=== PATIENT | male | born 1965 | race African-American/Black ===

== ENCOUNTER 2020-05-18 11:44 | Emergency (ER) | payer OTHER ==
[2020-05-18 11:50] VITALS: BP 120/84; PULSE 62; TEMP 98; BMI 22.8
--- NOTE | 2020-05-18 12:23 | PDOC ---
History of Present Illness - General Chief Complaint: Headache Stated Complaint: HEADACHE (4 DAYS) Time Seen by Provider: 05/18/20 12:05 History Source: Patient Past History - Medical History Allergies/Adverse Reactions: Allergies Allergy/AdvReac Type Severity Reaction Status Date / Time No Known Allergies Allergy Verified 05/18/20 11:50 Home Medications: Ambulatory Orders NK [No Known Home Medication] 09/07/14 COPD: No Other medical history: LUPUS - Psycho-Social/Smoking History Smoking History: Current every day smoker Information on smoking cessation initiated: No - Substance Abuse Hx (Audit-C & DAST Scrn) How often the patient has a drink containing alcohol: 2-4 times / month Score: In Men: 4 or > Positive; In Women: 3 or > Positive: 2 Screen Result (Pos requires Nsg. Audit-10AR): Negative *Physical Exam - Vital Signs Last Vital Signs Temp Pulse Resp BP Pulse Ox 98 F 62 18 120/84 98 05/18/20 11:47 05/18/20 11:47 05/18/20 11:47 05/18/20 11:47 05/18/20 11:47 ED Treatment Course - RADIOLOGY Radiology Studies Ordered: Category Date Time Status HEAD CT WITHOUT CONTRAST [CT] Stat CT Scan 05/18/20 12:22 Ordered Medical Decision Making - Medical Decision Making 05/18/20 12:22 55 yo M, here w/ GATICA x 4 days. Pain diffuse, unable to describe, 10/10 at its worse and improves w/ aleve. No dizziness, blurry vision, n/v/f/c or unexplained weight loss. Pt states he has had GATICA since he was "a little boy" but states he has not had a GATICA in many years. No neuroimaging in past see exam New onset GATICA Neuro intact No infectious sxs -CTH -pain presently controlled 05/18/20 14:05 CT scan unremarkable. Pt to continue aleve and follow up with his PMD Discharge - Discharge Information Problems reviewed: Yes Clinical Impression/Diagnosis: Headache Qualifiers: Headache type: unspecified Headache chronicity pattern: acute headache Intractability: not intractable Qualified Code(s): R51 - Headache Condition: Good Disposition: HOME - Follow up/Referral Referrals: Anna Mark [Primary Care Provider] - - Patient Discharge Instructions Patient Printed Discharge Instructions: DI for Headache Additional Instructions: Your cat scan was normal Continue aleve for pain Follow with your PMD - Post Discharge Activity
== END 2020-05-18 14:17 | disposition home or self-care (01) ==
LOC: JERFT 11:44
DX: R51 Headache (principal)
CPT/HCPCS: 70450-TC; 99284-25

== ENCOUNTER 2021-09-19 11:08 | Emergency (ER) | payer OTHER ==
[2021-09-19 12:03] VITALS: BP 126/68; PULSE 62; TEMP 98.6; BMI 20.7
[2021-09-19] MEDS ORDERED: IBUPROFEN 600 MG TABLET (FP) PO ONE (12:08)
== END 2021-09-19 13:40 | disposition home or self-care (01) ==
LOC: JER 11:08
DX: U07.1 COVID-19 (principal); Z11.52 Encounter for screening for COVID-19
CPT/HCPCS: 71046-TC-FY; 87804; 99284-25; C9803; U0003; U0005

== ENCOUNTER 2021-09-19 18:09 | Emergency (ER) | payer OTHER ==
[2021-09-19] MEDS ORDERED: CASIRIVIMAB/IMDEVIMAB 10 ML in SODIUM CHLORIDE 100 ML IVPB ONE (18:24)
[2021-09-19 18:29] VITALS: BMI 21.4
[2021-09-19 21:19] VITALS: BP 114/65; PULSE 68; TEMP 99.6
== END 2021-09-19 20:59 | disposition home or self-care (01) ==
LOC: JCOVINFU 18:09
DX: U07.1 COVID-19 (principal)
CPT/HCPCS: 99284-25; Q0240

== ENCOUNTER 2022-03-20 21:10 | Inpatient (IN) | payer OTHER ==
[2022-03-20] MEDS ORDERED: ACETAMINOPHEN 325 MG TABLET (FP) PO ONE (21:54)
[2022-03-20] MEDS ORDERED: ACETAMINOPHEN 1000 MG/100 ML BAG IVPB ONE (22:55)
[2022-03-20] MEDS ORDERED: ACETAMINOPHEN INJECTION 100 ML IVPB ONE (22:58)
[2022-03-21 00:22] LABS: BASO % 0.2 % (0-2.0); EOS % 1.5 % (0-4.5); HEMATOCRIT 42.3 % (35.4-49); HEMOGLOBIN 14.4 GM/dL (11.7-16.9); LYMPH % 15.2 % (8-40); MEAN CELL VOLUME 94.3 fl (80-96); MEAN PLT VOLUME 7.5 fl (7.5-11.1); MONO % 12.4 % (3.8-10.2); NEUT % 70.7 % (42.8-82.8); PLATELET COUNT 210 10^3/uL (134-434); RBC 4.49 M/mm3 (4.00-5.60); RDW 14.4 % (11.9-15.9); WHITE BLOOD COUNT 5.9 K/mm3 (4.0-10.0)
[2022-03-21 00:23] LABS: PH,URINE 6.5 (5.0-8.0); URINE APPEARANCE CLEAR; URINE BILIRUBIN NEGATIVE (NEGATIVE); URINE COLOR YELLOW; URINE GLUCOSE (UA) NEGATIVE (NEGATIVE); URINE KETONE NEGATIVE (NEGATIVE); URINE LEUK ESTERASE NEGATIVE (NEGATIVE); URINE NITRITE NEGATIVE (NEGATIVE); URINE PROTEIN NEGATIVE (NEGATIVE); URINE UROBILINOGEN 0.2 mg/dL (0.2-1.0)
[2022-03-21 00:29] LABS: ALBUMIN 3.5 g/dl (3.4-5.0); BLOOD UREA NITROGEN 9.6 mg/dL (7-18); CALCIUM 8.7 mg/dL (8.5-10.1)
[2022-03-21 00:33] LABS: BILIRUBIN,TOTAL 0.5 mg/dL (0.2-1); CREATININE 0.9 mg/dL (0.55-1.3); TOT PROT 7.2 g/dl (6.4-8.2)
[2022-03-21] MEDS ORDERED: CEFTRIAXONE 1 GM in DEXTROSE 5%-WATER - 50 ML IVPB ONE (02:55)
[2022-03-21] MEDS ORDERED: CEFTRIAXONE 1 GM/50 ML BAG ONE (02:58)
[2022-03-21] MEDS: SODIUM CHLORIDE 1,000 ML IV SCH (06:40)
[2022-03-21 07:40] LABS: CALCIUM 8.8 mg/dL (8.5-10.1); HEMATOCRIT 43.1 % (35.4-49); HEMOGLOBIN 14.5 GM/dL (11.7-16.9); MCH 31.7 pg (25.7-33.7); MCHC 33.7 g/dl (32.0-35.9); MEAN CELL VOLUME 94.2 fl (80-96); MEAN PLT VOLUME 7.4 fl (7.5-11.1); PLATELET COUNT 211 10^3/uL (134-434); RBC 4.58 M/mm3 (4.00-5.60); RDW 13.8 % (11.9-15.9); WHITE BLOOD COUNT 5.7 K/mm3 (4.0-10.0)
[2022-03-21 07:42] LABS: BLOOD UREA NITROGEN 8.9 mg/dL (7-18); MAGNESIUM 2.3 mg/dL (1.8-2.4)
[2022-03-21 07:44] LABS: CREATININE 0.8 mg/dL (0.55-1.3)
[2022-03-21 08:59] VITALS: BMI 19.8
[2022-03-21] MEDS ORDERED: DEXTROSE 5%-WATER - 50 ML IVPB ONE (09:21)
[2022-03-21] MEDS ORDERED: cefTRIAXone SODIUM 1 GM VIAL ONE (09:21)
[2022-03-21] MEDS: CEFTRIAXONE 1 GM in DEXTROSE 5%-WATER - 50 ML IVPB SCH (10:17)
[2022-03-21] MEDS ORDERED: ACETAMINOPHEN 1000 MG/100 ML BAG IVPB ONE (13:52)
[2022-03-21] MEDS ORDERED: predniSONE 10 MG TABLET (UD) PO ONE (13:52)
[2022-03-22] MEDS: ACETAMINOPHEN 500 MG TABLET (FP) PO PRN ×3 (03:43→22:37)
[2022-03-22] MEDS: SODIUM CHLORIDE 1,000 ML IV SCH (03:43)
[2022-03-22] MEDS ORDERED: DEXTROSE 5%-WATER - 50 ML IVPB ONE (09:27)
[2022-03-22] MEDS ORDERED: cefTRIAXone SODIUM 1 GM VIAL ONE (09:27)
[2022-03-22] MEDS: CEFTRIAXONE 1 GM in DEXTROSE 5%-WATER - 50 ML IVPB SCH (10:10)
[2022-03-22] MEDS: ENOXAPARIN NA (PORCINE) 40 MG/0.4 ML DISP.SYRIN SQ SCH (10:11)
[2022-03-22] MEDS: FOLIC ACID 1 MG TABLET (FP) PO SCH (10:53)
[2022-03-22] MEDS: predniSONE 10 MG TABLET (UD) PO SCH (11:12)
[2022-03-22 12:10] LABS: BASO % 0.3 % (0-2.0); EOS % 0.2 % (0-4.5); HEMATOCRIT 39.6 % (35.4-49); HEMOGLOBIN 13.7 GM/dL (11.7-16.9); LYMPH % 8.4 % (8-40); MCHC 34.5 g/dl (32.0-35.9); MEAN CELL VOLUME 92.7 fl (80-96); MONO % 7.5 % (3.8-10.2); NEUT % 83.6 % (42.8-82.8); PLATELET COUNT 209 10^3/uL (134-434); RBC 4.28 M/mm3 (4.00-5.60); RDW 13.8 % (11.9-15.9); WHITE BLOOD COUNT 8.3 K/mm3 (4.0-10.0)
[2022-03-22 12:29] LABS: CALCIUM 8.6 mg/dL (8.5-10.1)
[2022-03-22 12:30] LABS: BLOOD UREA NITROGEN 14.8 mg/dL (7-18)
[2022-03-22 12:33] LABS: CREATININE 0.9 mg/dL (0.55-1.3)
[2022-03-22] MEDS ORDERED: PIPERACILLIN/TAZOB 3.375 GM 3.375 GM in DEXTROSE 5%-WATER - 50 ML IVPB SCH (14:00)
[2022-03-23] MEDS: SODIUM CHLORIDE 1,000 ML IV SCH ×2 (05:30→22:15)
[2022-03-23] MEDS: ACETAMINOPHEN 500 MG TABLET (FP) PO PRN ×2 (06:07→12:13)
[2022-03-23 09:44] LABS: HEMATOCRIT 40.5 % (35.4-49); HEMOGLOBIN 13.7 GM/dL (11.7-16.9); MCH 31.6 pg (25.7-33.7); MCHC 33.8 g/dl (32.0-35.9); MEAN CELL VOLUME 93.4 fl (80-96); MEAN PLT VOLUME 7.5 fl (7.5-11.1); PLATELET COUNT 221 10^3/uL (134-434); RBC 4.34 M/mm3 (4.00-5.60); RDW 13.9 % (11.9-15.9)
[2022-03-23] MEDS: ENOXAPARIN NA (PORCINE) 40 MG/0.4 ML DISP.SYRIN SQ SCH (09:47)
[2022-03-23] MEDS: FOLIC ACID 1 MG TABLET (FP) PO SCH (09:47)
[2022-03-23] MEDS: predniSONE 10 MG TABLET (UD) PO SCH (09:47)
[2022-03-23 10:06] LABS: CALCIUM 8.5 mg/dL (8.5-10.1)
[2022-03-23 10:07] LABS: BLOOD UREA NITROGEN 15.6 mg/dL (7-18)
[2022-03-23 10:09] LABS: CREATININE 0.8 mg/dL (0.55-1.3)
[2022-03-23] MEDS ORDERED: DEXTROSE 5%-WATER - 50 ML IVPB ONE ×2 (12:11→16:26)
[2022-03-23] MEDS ORDERED: PIPERACILLIN/TAZOBACTAM 3.375 GM VIAL IVPB ONE ×3 (12:11→18:12)
[2022-03-23] MEDS: PIPERACILLIN/TAZOB 3.375 GM 3.375 GM in DEXTROSE 5%-WATER - 50 ML IVPB SCH ×2 (12:14→18:00)
[2022-03-23] MEDS ORDERED: morphine SULFATE 4 MG/ML VIAL IVPUSH ONE (12:45)
[2022-03-23] MEDS ORDERED: PIPERACILLIN/TAZOB 3.375 GM 3.375 GM in DEXTROSE 5%-WATER - 50 ML IVPB SCH (14:00)
[2022-03-23] MEDS ORDERED: INDOCYANINE GREEN 25 MG/10 ML VIAL IVPUSH ONE ×3 (17:25→18:20)
[2022-03-23] MEDS ORDERED: ONDANSETRON 4 MG/2 ML VIAL IVPUSH PRN ×2 (17:34→20:28)
[2022-03-23] MEDS ORDERED: PROPOFOL 20 ML ONE (17:37)
[2022-03-23] MEDS ORDERED: SUCCINYLCHOLINE CHLORIDE 200 MG/10 ML SYRINGE ONE (17:37)
[2022-03-23] MEDS ORDERED: MIDAZOLAM HCL 2 MG/2 ML SINGLE DOSE VIAL ONE (17:37)
[2022-03-23] MEDS ORDERED: FENTANYL CITRATE/PF 50 MCG/ML VIAL ONE ×9 (17:37→21:08)
[2022-03-23] MEDS ORDERED: ROCURONIUM BROMIDE 50 MG/5 ML SYRINGE ONE ×2 (17:37→19:22)
[2022-03-23] MEDS ORDERED: DEXAMETHASONE SOD PHOSPHATE 4 MG/1 ML VIAL ONE (17:41)
[2022-03-23] MEDS ORDERED: BUPIVACAINE HCL/PF 2.5 MG/ML - 30 ML VIAL IJ ONE (19:00)
[2022-03-23] MEDS ORDERED: BUPIVACAINE HCL/PF 0.25% (2.5MG/ML) 10 ML VIAL ONE (19:18)
[2022-03-23] MEDS ORDERED: NEOSTIGMINE METHYLSULFATE 0.5 MG/ML - 10 ML MDV ONE (19:54)
[2022-03-23] MEDS ORDERED: morphine CARPU-JECT 4 MG/1 ML DISP.SYRIN IVPUSH PRN (20:24)
[2022-03-23] MEDS ORDERED: IBUPROFEN 800 MG/8 ML IJ IVPB PRN (20:25)
[2022-03-24 01:24] LABS: HIV INTERPRETATION NEGATIVE (NEGATIVE)
[2022-03-24] MEDS ORDERED: DEXTROSE 5%-WATER - 50 ML IVPB ONE ×3 (01:35→18:11)
[2022-03-24] MEDS ORDERED: PIPERACILLIN/TAZOBACTAM 3.375 GM VIAL IVPB ONE ×3 (01:35→18:11)
[2022-03-24] MEDS: PIPERACILLIN/TAZOB 3.375 GM 3.375 GM in DEXTROSE 5%-WATER - 50 ML IVPB SCH ×3 (01:46→18:27)
[2022-03-24] MEDS: morphine SULFATE 4 MG/ML VIAL IVPUSH PRN ×2 (06:51→11:18)
[2022-03-24 09:16] LABS: HEMATOCRIT 38.6 % (35.4-49); MCH 31.2 pg (25.7-33.7); MCHC 33.6 g/dl (32.0-35.9); MEAN CELL VOLUME 92.9 fl (80-96); MEAN PLT VOLUME 7.1 fl (7.5-11.1); PLATELET COUNT 231 10^3/uL (134-434); RBC 4.15 M/mm3 (4.00-5.60); RDW 13.8 % (11.9-15.9); WHITE BLOOD COUNT 7.8 K/mm3 (4.0-10.0)
[2022-03-24] MEDS: FOLIC ACID 1 MG TABLET (FP) PO SCH (09:19)
[2022-03-24] MEDS: ENOXAPARIN NA (PORCINE) 40 MG/0.4 ML DISP.SYRIN SQ SCH (09:19)
[2022-03-24] MEDS: predniSONE 10 MG TABLET (UD) PO SCH (09:19)
[2022-03-24 10:00] LABS: CALCIUM 8.5 mg/dL (8.5-10.1)
[2022-03-24 10:01] LABS: BLOOD UREA NITROGEN 12.1 mg/dL (7-18)
[2022-03-24 10:04] LABS: CREATININE 0.8 mg/dL (0.55-1.3)
[2022-03-24] MEDS: ACETAMINOPHEN 500 MG TABLET (FP) PO PRN ×2 (15:00→21:01)
[2022-03-24] MEDS: SODIUM CHLORIDE 1,000 ML IV SCH ×2 (15:04→18:25)
[2022-03-25] MEDS ORDERED: PIPERACILLIN/TAZOBACTAM 3.375 GM VIAL IVPB ONE ×3 (01:28→17:40)
[2022-03-25] MEDS ORDERED: DEXTROSE 5%-WATER - 50 ML IVPB ONE ×3 (01:29→17:40)
[2022-03-25] MEDS: PIPERACILLIN/TAZOB 3.375 GM 3.375 GM in DEXTROSE 5%-WATER - 50 ML IVPB SCH ×3 (01:43→18:07)
[2022-03-25] MEDS: morphine SULFATE 4 MG/ML VIAL IVPUSH PRN (06:54)
[2022-03-25 09:44] LABS: HEMOGLOBIN 12.9 GM/dL (11.7-16.9); MCH 31.9 pg (25.7-33.7); MCHC 33.9 g/dl (32.0-35.9); MEAN CELL VOLUME 94.1 fl (80-96); MEAN PLT VOLUME 7.8 fl (7.5-11.1); PLATELET COUNT 244 10^3/uL (134-434); RBC 4.04 M/mm3 (4.00-5.60); RDW 13.7 % (11.9-15.9); WHITE BLOOD COUNT 7.2 K/mm3 (4.0-10.0)
[2022-03-25 09:51] LABS: CALCIUM 8.4 mg/dL (8.5-10.1)
[2022-03-25 09:52] LABS: BLOOD UREA NITROGEN 13.6 mg/dL (7-18)
[2022-03-25 09:55] LABS: CREATININE 0.7 mg/dL (0.55-1.3)
[2022-03-25] MEDS: predniSONE 10 MG TABLET (UD) PO SCH (10:58)
[2022-03-25] MEDS: ENOXAPARIN NA (PORCINE) 40 MG/0.4 ML DISP.SYRIN SQ SCH (10:58)
[2022-03-25] MEDS: FOLIC ACID 1 MG TABLET (FP) PO SCH (10:58)
[2022-03-25] MEDS: SODIUM CHLORIDE 1,000 ML IV SCH (17:34)
[2022-03-26] MEDS ORDERED: DEXTROSE 5%-WATER - 50 ML IVPB ONE ×2 (01:38→09:37)
[2022-03-26] MEDS ORDERED: PIPERACILLIN/TAZOBACTAM 3.375 GM VIAL IVPB ONE ×2 (01:38→09:37)
[2022-03-26] MEDS: PIPERACILLIN/TAZOB 3.375 GM 3.375 GM in DEXTROSE 5%-WATER - 50 ML IVPB SCH ×2 (02:14→09:45)
[2022-03-26] MEDS: morphine SULFATE 4 MG/ML VIAL IVPUSH PRN (02:15)
[2022-03-26] MEDS: ENOXAPARIN NA (PORCINE) 40 MG/0.4 ML DISP.SYRIN SQ SCH (09:44)
[2022-03-26] MEDS: predniSONE 10 MG TABLET (UD) PO SCH (09:44)
[2022-03-26] MEDS: FOLIC ACID 1 MG TABLET (FP) PO SCH (09:44)
[2022-03-26] MEDS: ACETAMINOPHEN 500 MG TABLET (FP) PO PRN (09:53)
[2022-03-26 10:36] LABS: HEMATOCRIT 37.8 % (35.4-49); HEMOGLOBIN 12.7 GM/dL (11.7-16.9); MCH 31.4 pg (25.7-33.7); MCHC 33.6 g/dl (32.0-35.9); MEAN CELL VOLUME 93.4 fl (80-96); MEAN PLT VOLUME 7.2 fl (7.5-11.1); PLATELET COUNT 276 10^3/uL (134-434); RBC 4.05 M/mm3 (4.00-5.60); RDW 13.7 % (11.9-15.9); WHITE BLOOD COUNT 6.4 K/mm3 (4.0-10.0)
[2022-03-26] MEDS: SODIUM CHLORIDE 1,000 ML IV SCH (11:33)
[2022-03-26 11:35] LABS: CALCIUM 8.3 mg/dL (8.5-10.1)
[2022-03-26 11:36] LABS: BLOOD UREA NITROGEN 13.4 mg/dL (7-18)
[2022-03-26 11:39] LABS: CREATININE 0.8 mg/dL (0.55-1.3)
[2022-03-26] MEDS ORDERED: oxyCODONE HCL 5 MG TABLET PO PRN (12:24)
[2022-03-26] MEDS ORDERED: IBUPROFEN 600 MG TABLET (FP) PO SCH (12:30)
[2022-03-26] MEDS: ACETAMINOPHEN 325 MG TABLET (FP) PO SCH ×3 (14:18→23:48)
[2022-03-26] MEDS ORDERED: IBUPROFEN 600 MG TABLET (FP) PO PRN (14:28)
[2022-03-26] MEDS: AMOX TR/POT CLAV 875MG/125MG TABLETS (FP) PO SCH (17:28)
[2022-03-27] MEDS: ACETAMINOPHEN 325 MG TABLET (FP) PO SCH ×3 (06:28→17:45)
[2022-03-27] MEDS: FOLIC ACID 1 MG TABLET (FP) PO SCH (09:35)
[2022-03-27] MEDS: ENOXAPARIN NA (PORCINE) 40 MG/0.4 ML DISP.SYRIN SQ SCH (09:35)
[2022-03-27] MEDS: AMOX TR/POT CLAV 875MG/125MG TABLETS (FP) PO SCH ×2 (09:35→16:52)
[2022-03-27] MEDS: predniSONE 10 MG TABLET (UD) PO SCH (09:36)
[2022-03-27 16:26] VITALS: BP 112/72; PULSE 58; TEMP 98.8
== END 2022-03-27 18:38 | disposition home health service (06) | DRG 221 ==
LOC: JER 21:10 → JERBED 03-21 03:23 → J8W 03-21 08:12
PROVIDERS: ADMIT Internal Medicine; ATTEND Internal Medicine
PROC: 0D1N4Z4 Bypass Sigmoid Colon to Cutaneous, Percutaneous Endoscopic Approach (ICD-10-PCS; principal; 2022-03-23 17:30)
PROC: 0DBNFZZ Excision of Sigmoid Colon, Via Natural or Artificial Opening With Percutaneous Endoscopic Assistance (ICD-10-PCS; 2022-03-23 17:30)
PROC: 0T788DZ Dilation of Bilateral Ureters with Intraluminal Device, Via Natural or Artificial Opening Endoscopic (ICD-10-PCS; 2022-03-25)
DX: K57.80 Diverticulitis of intestine, part unspecified, with perforation and abscess without bleeding (principal); D84.9 Immunodeficiency, unspecified; K65.9 Peritonitis, unspecified; J98.11 Atelectasis; L93.1 Subacute cutaneous lupus erythematosus; R50.9 Fever, unspecified; R10.32 Left lower quadrant pain
CPT/HCPCS: 36415; 71045-TC-FY; 74176-TC; 80048; 80053; 81003; 83735; 85025; 85027; 86140; 87040; 87086; 87389; 88307-TC; 93005; 93010; 94760; 99285-25; C9803-CS; U0003; U0005

== ENCOUNTER 2022-07-27 04:33 | Day surgery (SDC) | payer OTHER ==
[2022-07-22 12:20] VITALS: BMI 24.5
[2022-07-27 11:08] VITALS: TEMP 98
[2022-07-27 12:03] VITALS: BP 130/72; PULSE 56; RESP 18
== END 2022-07-27 11:45 | disposition home or self-care (01) ==
LOC: JASU-ENDO 04:33
PROVIDERS: ATTEND Internal Medicine Gastroenterology
PROC: 0DJD8ZZ Inspection of Lower Intestinal Tract, Via Natural or Artificial Opening Endoscopic (ICD-10-PCS; principal; 2022-07-27 10:00)
DX: Z12.11 Encounter for screening for malignant neoplasm of colon (principal); K57.31 Diverticulosis of large intestine without perforation or abscess with bleeding; K57.30 Diverticulosis of large intestine without perforation or abscess without bleeding; K64.8 Other hemorrhoids; Z93.3 Colostomy status

== ENCOUNTER 2022-08-07 13:27 | Emergency (ER) | payer OTHER ==
[2022-08-07 13:36] VITALS: BP 113/62; PULSE 67; RESP 16; TEMP 97.9; BMI 22.1
== END 2022-08-07 14:26 | disposition home or self-care (01) ==
LOC: JERFT 13:27
DX: K94.03 Colostomy malfunction (principal); Z76.0 Encounter for issue of repeat prescription
CPT/HCPCS: 99282-25

== ENCOUNTER 2022-08-30 17:30 | Inpatient (IN) | payer OTHER ==
[2022-09-07] MEDS ORDERED: HEPARIN NA (PORCINE) 5,000 UNITS/ML 1ML VIAL ONE (08:04)
[2022-09-07] MEDS ORDERED: PROPOFOL 20 ML ONE (08:05)
[2022-09-07] MEDS ORDERED: FENTANYL CITRATE/PF 50 MCG/ML VIAL ONE (08:05)
[2022-09-07] MEDS ORDERED: MIDAZOLAM HCL 2 MG/2 ML SINGLE DOSE VIAL ONE (08:05)
[2022-09-07] MEDS ORDERED: HEPARIN NA (PORCINE) 5,000 UNITS/ML 1ML VIAL SQ ONE (08:09)
[2022-09-07] MEDS ORDERED: DEXAMETHASONE SOD PHOSPHATE 4 MG/1 ML VIAL ONE (08:28)
[2022-09-07] MEDS ORDERED: cefOXitin SODIUM 1 GM VIAL (RESTRICTED TO ID) IVPB ONE (08:30)
[2022-09-07] MEDS ORDERED: ONDANSETRON 4 MG/2 ML VIAL ONE (08:31)
[2022-09-07] MEDS ORDERED: CEFOXITIN SODIUM 1 GM IVPB ONE (08:32)
[2022-09-07] MEDS ORDERED: ROCURONIUM BROMIDE 50 MG/5 ML SYRINGE ONE (08:49)
[2022-09-07] MEDS ORDERED: BUPIVACAINE HCL/PF 0.25% (2.5MG/ML) 10 ML VIAL IJ ONE (09:05)
[2022-09-07] MEDS ORDERED: SEVOFLURANE 250 ML BTL ONE (09:09)
[2022-09-07] MEDS ORDERED: INDOCYANINE GREEN 25 MG/10 ML VIAL IVPUSH ONE (09:09)
[2022-09-07] MEDS ORDERED: BUPIVACAINE HCL/PF 0.25% (2.5MG/ML) 10 ML VIAL ONE ×2 (09:09→09:11)
[2022-09-07] MEDS ORDERED: HYDROmorphone HCl 2 MG/ML VIAL ONE (10:22)
[2022-09-07] MEDS ORDERED: ACETAMINOPHEN INJECTION 100 ML IVPB ONE (10:25)
[2022-09-07] MEDS ORDERED: ONDANSETRON 4 MG/2 ML VIAL IVPUSH PRN ×2 (11:46→11:51)
[2022-09-07] MEDS ORDERED: DEXTROSE 5%-0.45% SALINE 1,000 ML IV SCH (12:00)
[2022-09-07 14:10] VITALS: BMI 23.1
[2022-09-07] MEDS: LACTATED RINGERS SOLUTION 1,000 ML IV SCH (14:11)
[2022-09-07] MEDS: SODIUM CHLORIDE 1,000 ML IV SCH (14:11)
[2022-09-07] MEDS: IBUPROFEN 800 MG/8 ML IJ IVPB SCH ×2 (14:27→22:15)
[2022-09-07] MEDS ORDERED: BISACODYL 5 MG TABLET.DR (FP) PO PRN (16:00)
[2022-09-07] MEDS: ACETAMINOPHEN 1000 MG/100 ML BAG IVPB SCH (17:20)
[2022-09-07] MEDS: ENOXAPARIN NA (PORCINE) 40 MG/0.4 ML DISP.SYRIN SQ SCH (21:15)
[2022-09-07] MEDS: MELATONIN 1 MG TABLET PO SCH (21:15)
[2022-09-07] MEDS ORDERED: oxyCODONE HCL 5 MG TABLET PO PRN (23:31)
[2022-09-08] MEDS: ACETAMINOPHEN 1000 MG/100 ML BAG IVPB SCH ×3 (00:53→11:35)
[2022-09-08] MEDS: SODIUM CHLORIDE 1,000 ML IV SCH ×2 (00:54→12:46)
[2022-09-08] MEDS: IBUPROFEN 800 MG/8 ML IJ IVPB SCH (06:46)
[2022-09-08] MEDS ORDERED: oxyCODONE HCL 5 MG TABLET PO PRN ×2 (08:31)
[2022-09-08] MEDS ORDERED: morphine SULFATE 4 MG/ML VIAL IVPUSH PRN (08:31)
[2022-09-08] MEDS: ENOXAPARIN NA (PORCINE) 40 MG/0.4 ML DISP.SYRIN SQ SCH (09:30)
[2022-09-08] MEDS: predniSONE 5 MG TABLET (UD) PO SCH (09:59)
[2022-09-08] MEDS ORDERED: HYDROXYCHLOROQUINE SO4 200 MG TABLET (FP) PO SCH (10:00)
[2022-09-08] MEDS: PANTOPRAZOLE SODIUM 40 MG VIAL IVPUSH SCH ×2 (10:47→22:08)
[2022-09-08 11:12] LABS: HEMATOCRIT 39.2 % (35.4-49); HEMOGLOBIN 13.1 GM/dL (11.7-16.9); MCHC 33.4 g/dl (32.0-35.9); MEAN CELL VOLUME 89.9 fl (80-96); MEAN PLT VOLUME 7.8 fl (7.5-11.1); PLATELET COUNT 191 10^3/uL (134-434); RBC 4.35 M/mm3 (4.00-5.60); RDW 12.9 % (11.9-15.9); WHITE BLOOD COUNT 5.8 K/mm3 (4.0-10.0)
[2022-09-08 11:44] LABS: CALCIUM 8.1 mg/dL (8.5-10.1)
[2022-09-08 11:45] LABS: BLOOD UREA NITROGEN 12.1 mg/dL (7-18)
[2022-09-08 11:49] LABS: CREATININE 0.9 mg/dL (0.55-1.3)
[2022-09-08] MEDS: LACTATED RINGERS SOLUTION 1,000 ML IV SCH (12:46)
[2022-09-08] MEDS ORDERED: IBUPROFEN 600 MG TABLET (FP) PO SCH (13:00)
[2022-09-08 15:42] LABS: BASO % 0.8 % (0-2.0); EOS % 0.1 % (0-4.5); HEMOGLOBIN 12.5 GM/dL (11.7-16.9); LYMPH % 12.8 % (8-40); MCH 29.8 pg (25.7-33.7); MEAN CELL VOLUME 90.4 fl (80-96); MEAN PLT VOLUME 7.7 fl (7.5-11.1); MONO % 4.2 % (3.8-10.2); NEUT % 82.1 % (42.8-82.8); PLATELET COUNT 167 10^3/uL (134-434); RBC 4.21 M/mm3 (4.00-5.60); WHITE BLOOD COUNT 5.9 K/mm3 (4.0-10.0)
[2022-09-08] MEDS ORDERED: LIDOCAINE HCL 1%, 10 MG/ML (20ML VIAL) SQ ONE (16:58)
[2022-09-08] MEDS ORDERED: LIDOCAINE HCL 1%, 10 MG/ML (50 mL VIAL) SQ ONE (16:58)
[2022-09-08] MEDS ORDERED: LIDOCAINE HCL 1%, 10 MG/ML (20ML VIAL) ONE (17:00)
[2022-09-08] MEDS: oxyCODONE HCL 5 MG TABLET PO PRN (17:43)
[2022-09-08 18:16] LABS: INR 1.29 (0.83-1.09); PROTHROMBIN TIME (PATIENT) 14.9 SEC (9.7-13.0)
[2022-09-08 18:19] LABS: ACTIVATED PTT 32.5 SECONDS (25.2-36.5)
[2022-09-08] MEDS ORDERED: TRANEXAMIC ACID 1000 MG/10 ML VIAL IVPB ONE (20:11)
[2022-09-08] MEDS ORDERED: TRANEXAMIC ACID IVPB ONE (21:00)
[2022-09-08] MEDS ORDERED: SODIUM CHLORIDE IVPB ONE (21:00)
[2022-09-08 21:33] LABS: HEMATOCRIT 33.7 % (35.4-49); HEMOGLOBIN 11.6 GM/dL (11.7-16.9); MCH 30.8 pg (25.7-33.7); MCHC 34.4 g/dl (32.0-35.9); MEAN CELL VOLUME 89.6 fl (80-96); MEAN PLT VOLUME 7.3 fl (7.5-11.1); PLATELET COUNT 163 10^3/uL (134-434); RBC 3.76 M/mm3 (4.00-5.60)
[2022-09-08] MEDS ORDERED: CHLORHEXIDINE GLUCONATE 4% CLEANSER FOR DECOLONIZATION TP SCH (22:00)
[2022-09-08] MEDS ORDERED: MUPIROCIN 2% TOPICAL OINTMENT FOR DECOLONIZATION NS SCH (22:00)
[2022-09-08] MEDS: ACETAMINOPHEN 500 MG TABLET (FP) PO SCH (22:09)
[2022-09-08] MEDS: MELATONIN 1 MG TABLET PO SCH (22:10)
[2022-09-09] MEDS: oxyCODONE HCL 5 MG TABLET PO PRN ×2 (01:15→20:35)
[2022-09-09 02:55] LABS: HEMOGLOBIN 10.9 GM/dL (11.7-16.9); MCH 30.6 pg (25.7-33.7); MCHC 34.1 g/dl (32.0-35.9); MEAN CELL VOLUME 89.9 fl (80-96); MEAN PLT VOLUME 6.9 fl (7.5-11.1); PLATELET COUNT 156 10^3/uL (134-434); RBC 3.56 M/mm3 (4.00-5.60); RDW 12.7 % (11.9-15.9); WHITE BLOOD COUNT 6.3 K/mm3 (4.0-10.0)
[2022-09-09] MEDS: ACETAMINOPHEN 500 MG TABLET (FP) PO SCH ×3 (05:31→20:36)
[2022-09-09] MEDS: SODIUM CHLORIDE 1,000 ML IV SCH ×2 (06:35→12:37)
[2022-09-09 09:13] LABS: BASO % 1.6 % (0-2.0); EOS % 0.2 % (0-4.5); HEMATOCRIT 29.6 % (35.4-49); HEMOGLOBIN 9.9 GM/dL (11.7-16.9); LYMPH % 16.1 % (8-40); MCH 30.2 pg (25.7-33.7); MCHC 33.5 g/dl (32.0-35.9); MEAN PLT VOLUME 7.9 fl (7.5-11.1); MONO % 5.9 % (3.8-10.2); NEUT % 76.2 % (42.8-82.8); PLATELET COUNT 156 10^3/uL (134-434); RBC 3.28 M/mm3 (4.00-5.60); RDW 12.7 % (11.9-15.9)
[2022-09-09 09:27] LABS: CALCIUM 7.7 mg/dL (8.5-10.1)
[2022-09-09 09:28] LABS: ALBUMIN 2.4 g/dl (3.4-5.0); BLOOD UREA NITROGEN 13.8 mg/dL (7-18); MAGNESIUM 1.7 mg/dL (1.8-2.4)
[2022-09-09 09:31] LABS: CREATININE 0.8 mg/dL (0.55-1.3); PHOSPHOROUS 2.7 mg/dL (2.5-4.9)
[2022-09-09 09:33] LABS: TOT PROT 4.8 g/dl (6.4-8.2)
[2022-09-09 09:36] LABS: BILIRUBIN,TOTAL 0.8 mg/dL (0.2-1)
[2022-09-09] MEDS: predniSONE 5 MG TABLET (UD) PO SCH (09:52)
[2022-09-09] MEDS: PANTOPRAZOLE SODIUM 40 MG VIAL IVPUSH SCH ×2 (09:52→21:05)
[2022-09-09] MEDS ORDERED: TRANEXAMIC ACID 1000 MG/10 ML VIAL IVPUSH ONE (10:25)
[2022-09-09] MEDS ORDERED: TRANEXAMIC ACID IVPB ONE ×2 (11:00→20:00)
[2022-09-09] MEDS ORDERED: SODIUM CHLORIDE IVPB ONE ×2 (11:00→20:00)
[2022-09-09 15:54] LABS: BASO % 0.2 % (0-2.0); EOS % 0.1 % (0-4.5); HEMATOCRIT 29.4 % (35.4-49); HEMOGLOBIN 10.1 GM/dL (11.7-16.9); LYMPH % 12.5 % (8-40); MCH 30.8 pg (25.7-33.7); MCHC 34.3 g/dl (32.0-35.9); MEAN CELL VOLUME 89.9 fl (80-96); MEAN PLT VOLUME 7.3 fl (7.5-11.1); MONO % 3.7 % (3.8-10.2); NEUT % 83.5 % (42.8-82.8); PLATELET COUNT 156 10^3/uL (134-434); RBC 3.27 M/mm3 (4.00-5.60); RDW 12.5 % (11.9-15.9); WHITE BLOOD COUNT 6.9 K/mm3 (4.0-10.0)
[2022-09-09 20:56] LABS: HEMATOCRIT 29.5 % (35.4-49); HEMOGLOBIN 10.2 GM/dL (11.7-16.9); MCHC 34.6 g/dl (32.0-35.9); MEAN CELL VOLUME 89.5 fl (80-96); PLATELET COUNT 148 10^3/uL (134-434); RBC 3.29 M/mm3 (4.00-5.60); RDW 12.7 % (11.9-15.9); WHITE BLOOD COUNT 6.4 K/mm3 (4.0-10.0)
[2022-09-10] MEDS: SODIUM CHLORIDE 1,000 ML IV SCH ×2 (02:13→12:30)
[2022-09-10] MEDS: MELATONIN 1 MG TABLET PO SCH ×2 (02:29→22:22)
[2022-09-10] MEDS: ACETAMINOPHEN 500 MG TABLET (FP) PO SCH ×2 (05:32→12:30)
[2022-09-10] MEDS: predniSONE 5 MG TABLET (UD) PO SCH (09:49)
[2022-09-10] MEDS: PANTOPRAZOLE SODIUM 40 MG VIAL IVPUSH SCH ×2 (09:49→22:17)
[2022-09-10 11:58] LABS: BASO % 0.7 % (0-2.0); HEMATOCRIT 32.8 % (35.4-49); LYMPH % 25.6 % (8-40); MCH 30.2 pg (25.7-33.7); MCHC 33.5 g/dl (32.0-35.9); MEAN CELL VOLUME 90.2 fl (80-96); MONO % 6.5 % (3.8-10.2); NEUT % 65.2 % (42.8-82.8); PLATELET COUNT 207 10^3/uL (134-434); RBC 3.64 M/mm3 (4.00-5.60); RDW 12.6 % (11.9-15.9); WHITE BLOOD COUNT 6.8 K/mm3 (4.0-10.0)
[2022-09-10 12:30] LABS: CALCIUM 8.5 mg/dL (8.5-10.1)
[2022-09-10 12:31] LABS: BLOOD UREA NITROGEN 9.6 mg/dL (7-18); CREATININE 0.9 mg/dL (0.55-1.3)
[2022-09-10 12:33] LABS: BILIRUBIN,TOTAL 0.5 mg/dL (0.2-1)
[2022-09-10 18:19] LABS: INR 1.03 (0.83-1.09); PROTHROMBIN TIME (PATIENT) 11.8 SEC (9.7-13.0)
[2022-09-11] MEDS: oxyCODONE HCL 5 MG TABLET PO PRN (05:26)
[2022-09-11] MEDS: PANTOPRAZOLE SODIUM 40 MG VIAL IVPUSH SCH (09:33)
[2022-09-11] MEDS: predniSONE 5 MG TABLET (UD) PO SCH (09:33)
[2022-09-11 11:35] VITALS: BP 138/77; PULSE 82; RESP 18; TEMP 98.3
[2022-09-11 12:32] LABS: BASO % 0.7 % (0-2.0); EOS % 3.1 % (0-4.5); HEMATOCRIT 29.7 % (35.4-49); HEMOGLOBIN 10.1 GM/dL (11.7-16.9); LYMPH % 26.7 % (8-40); MCH 30.4 pg (25.7-33.7); MCHC 34.1 g/dl (32.0-35.9); MEAN CELL VOLUME 89.3 fl (80-96); MEAN PLT VOLUME 7.8 fl (7.5-11.1); MONO % 11.2 % (3.8-10.2); NEUT % 58.3 % (42.8-82.8); PLATELET COUNT 202 10^3/uL (134-434); RBC 3.33 M/mm3 (4.00-5.60); RDW 12.7 % (11.9-15.9); WHITE BLOOD COUNT 4.3 K/mm3 (4.0-10.0)
[2022-09-11 12:47] LABS: ALBUMIN 2.7 g/dl (3.4-5.0); CALCIUM 8.3 mg/dL (8.5-10.1)
[2022-09-11 12:48] LABS: BLOOD UREA NITROGEN 10.8 mg/dL (7-18)
[2022-09-11 12:50] LABS: CREATININE 0.8 mg/dL (0.55-1.3)
[2022-09-11 12:52] LABS: BILIRUBIN,TOTAL 0.2 mg/dL (0.2-1); TOT PROT 5.6 g/dl (6.4-8.2)
== END 2022-09-11 14:31 | disposition home or self-care (01) | DRG 221 ==
LOC: J2C 09-07 05:32 → J6S 09-07 14:15
PROVIDERS: ADMIT Surgery
PROC: 0DSM4ZZ Reposition Descending Colon, Percutaneous Endoscopic Approach (ICD-10-PCS; 2022-09-07)
PROC: 8E0 Other Procedures, Physiological Systems and Anatomical Regions, Other Procedures (ICD-10-PCS; 2022-09-07)
PROC: 0DBG4ZZ Excision of Left Large Intestine, Percutaneous Endoscopic Approach (ICD-10-PCS; principal; 2022-09-07 08:00)
DX: Z43.3 Encounter for attention to colostomy (principal); M32.9 Systemic lupus erythematosus, unspecified; I10 Essential (primary) hypertension; K92.2 Gastrointestinal hemorrhage, unspecified
CPT/HCPCS: 36415; 80048; 80053; 82272; 83605; 83735; 84100; 85025; 85027; 85610; 85730; 86140; 86850; 86900; 86901; 88305-TC; 93005; 93010; 94010; 94760; C9803-CS; J1644; U0003; U0005